=== PATIENT | female | born 1980 | race Caucasian/White ===

== ENCOUNTER 2021-11-27 23:49 | Emergency (ER) | payer MEDICAID, SELFPAY ==
--- NOTE | 2021-11-28 00:03 | PC.NURSE ---
Pt brought back to room, placed in room 9. Pt placed in gown, clothes and belonging placed in pt belonging bag. 1-to-1 observation began, staff at bedside within reach.
[2021-11-28 00:08] VITALS: BP 124/80; PULSE 119; RESP 18; TEMP 36.7; O2SAT 96; BMI 37.8
[2021-11-28 00:08] LABS: Microscopic, Urine URINE MICROSCOPIC (MICROSCOPIC)
--- NOTE | 2021-11-28 00:14 | ECG_ITS ---
APPROVED REPORT Exam: Resting ECG HR:109 bpm ECG Measurements Heart Rate 109 AXES AK 184 P 46 QRSd 112 QRS 60 QT 343 T 32 QTc 407 Conclusion SINUS TACHYCARDIA MODERATE INTRAVENTRICULAR CONDUCTION DELAY [110+ ms QRS DURATION] ABNORMAL RHYTHM ECG UNCONFIRMED REPORT Electronically signed by : Raad Schafer MD 11/29/2021 16:25:36
[2021-11-28 00:16] LABS: Appearance,Urine CLEAR (Clear); Bilirubin,Urine Negative (Negative); Blood, Urine Negative (Negative); Color,Urine YELLOW (Yellow); Glucose,Urine (UA) 1+ (Negative); Ketones,Urine Negative (Negative); Leukocyte Esterase,Urine Negative (Negative); Nitrate,Urine Negative (Negative); Protein,Urine Negative (Negative); Urobilinogen,Urine 0.2 EU/dl (0.2)
[2021-11-28 00:18] LABS: Amorphous Sediment,Urine Trace /lpf; Urine Pregnancy, HCG Qual. Negative (Negative)
--- NOTE | 2021-11-28 00:20 | XR_ITS ---
PROCEDURE INFORMATION: Exam: XR Chest Exam date and time: 11/28/2021 12:55 AM Age: 41 years old Clinical indication: Shortness of breath; Sternal or substernal pain; Additional info: SOA chest pain TECHNIQUE: Imaging protocol: Radiologic exam of the chest. Views: 2 views. Total images: 6 COMPARISON: No relevant prior studies available. FINDINGS: Lungs: Subtle patchy pulmonary parenchymal opacities most notable in the left mid and bilateral lower lungs, possibly findings of atypical pneumonia. COVID-19 is a consideration. Pleural spaces: Unremarkable. No pleural effusion. No pneumothorax. Heart/Mediastinum: Unremarkable. No cardiomegaly. Bones/joints: Left sided acromioclavicular joint degeneration. IMPRESSION: Subtle patchy pulmonary parenchymal opacities most notable in the left mid and bilateral lower lungs, possibly findings of atypical pneumonia. COVID-19 is a consideration. Radiographic surveillance is recommended to document resolution.
[2021-11-28 00:21] LABS: Coronavirus 19, PCR Not Detected (NotDetected); Influenza A, PCR Not Detected (NotDetected); Influenza B, PCR Not Detected (NotDetected)
[2021-11-28 00:26] LABS: Barbiturates Screen,Urine Negative ng/ml (<200)
[2021-11-28 00:27] LABS: Benzodiazepines Screen,Urine Negative ng/ml (<200)
[2021-11-28 00:28] LABS: Amphetamine/Metha Screen,Urine Negative ng/ml (<1000); Methadone Screen,Urine Negative ng/ml (<300)
[2021-11-28 00:29] LABS: Cannabinoid Screen,Urine Negative ng/ml (<50); Cocaine Screen,Urine Negative ng/ml (<300)
[2021-11-28 00:30] LABS: Opiate Screen,Urine Negative ng/ml (<300)
[2021-11-28 00:31] LABS: Phencyclidine Screen,Urine Negative ng/ml (<25)
[2021-11-28 00:33] LABS: Basophils # 0.2 K/mm3 (0-0.2); Basophils % 1.3 % (0.1-2.0); Eosinophils # 0.1 K/mm3 (0.0-0.4); Eosinophils % 0.8 % (0.1-12.0); Hematocrit 40.7 % (37.0-47.0); Hemoglobin 13.1 g/dL (12.2-16.2); Lymphocytes # 3.4 K/mm3 (0.7-4.5); Lymphocytes % 28.2 % (10-50); Mean Corpuscular HGB Conc 32.2 g/dL (31.8-35.4); Mean Corpuscular Hemoglobin 27.6 pg (27.0-31.2); Mean Corpuscular Volume 85.8 fl (81-99); Mean Platelet Volume 7.2 fl (7.4-10.4); Monocytes # 0.6 K/mm3 (0.1-1.0); Monocytes % 4.8 % (1.7-9.3); Neutrophils # 7.8 K/mm3 (1.8-7.8); Neutrophils % 64.9 % (37.0-80.0); Red Blood Count 4.75 M/mm3 (4.20-5.40); Red Cell Distribution Width 15.4 % (11.5-17.5)
[2021-11-28 00:36] LABS: Chloride 97 mmol/L (98-107); Potassium 3.7 mmoL/L (3.5-5.1); Sodium 135 mmol/L (136-145)
[2021-11-28 00:38] LABS: Blood Urea Nitrogen 4 mg/dl (7-17); Creatinine Clearance Estimated 216 mL/min (50-200); Estimated Glomerular Filt Rate 137 ml/min (>60); GFR (African American) 166 ML/MIN (>60)
[2021-11-28 00:39] LABS: Alanine Aminotransferase 39 U/L (12-78); Albumin/Globulin Ratio 1.7 (1.1-1.8); Alkaline Phosphatase 87 U/L (38-126); Anion Gap 20.7 mEq/L (5-15); Aspartate Amino Transferase 38 U/L (14-36); Bilirubin,Total 0.2 mg/dl (0.2-1.3); Calcium 10.1 mg/dl (8.4-10.2); Carbon Dioxide 21 mmol/L (22.0-30.0); Glucose 332 mg/dl (74-100)
[2021-11-28 00:40] LABS: Acetaminophen < 10 ug/ml (10-30); Ethyl Alcohol < 10 mg/dl (0-10); Salicylate < 1.0 mg/dL (2.0-20.0)
[2021-11-28 00:43] LABS: Platelet Count 655 K/mm3 (142-424)
[2021-11-28 01:51] LABS: Acetone, Serum (Rapid) None Detected (None Detect)
[2021-11-28 02:08] VITALS: BP 133/75; PULSE 90; O2SAT 100
[2021-11-28 02:30] VITALS: BP 126/72; PULSE 91; O2SAT 99
--- NOTE | 2021-11-28 02:37 | [facility].EDPSYCH ---
ED Disposition Clinical Impression: Depression Qualifiers: Depression Type: major depressive disorder Major depression recurrence: single episode Active/Remission status: currently active Major depression episode severity: mild Qualified Code(s): F32.0 - Major depressive disorder, single episode, mild Diabetes mellitus Qualifiers: Diabetes mellitus type: type 2 Diabetes mellitus usp insulin use: unspecified usp insulin use status Diabetes mellitus complication status: with other specified complication Qualified Code(s): E11.69 - Type 2 diabetes mellitus with other specified complication Disposition: Home, Self-Care Condition on Discharge: Good Instructions: Depression Additional Instructions: see pcp for follow up Referrals: Provider,Referral, [Primary Care Provider] - - Critical Care Critical Care Time: No Attestation: On 11/27/21, the high probability of a clinically significant, sudden or life threatening deterioration of the following system(s) required my full and direct attention, intervention and personal management. The time I documented below is in addition to time spent performing reported procedures but includes the following listed in this critical care notation. Medical Decision Making - Medical Records Medical records reviewed: Yes: I reviewed the patient's medical records. - [place] Inquiry Pt receiving controlled substance: No Vital Signs: 11/28/21 00:08 11/28/21 02:08 11/28/21 02:30 Temperature 98.1 F Temperature Source Oral Pulse Rate 90 91 H Pulse Rate [Apical] 119 H Respiratory Rate 18 Blood Pressure 133/75 126/72 Blood Pressure [Right Arm] 124/80 Blood Pressure Mean 99 Blood Pressure Mean [Right Arm] 94 Blood Pressure Source [Right Arm] Automatic Cuff Blood Pressure Position [Right Arm] Sitting 02 Sat by Pulse Oximetry 96 100 99 Oxygen Delivery Method Room Air Room Air Room Air - Lab Data Lab results reviewed: Yes: I reviewed the patient's lab results. Lab Results 11/28/21 00:03: Urine Color Yellow, Urine Appearance Clear, Urine pH 6.0, Ur Specific Jordan 1.010, Urine Protein Negative, Urine Glucose (UA) 1+, Urine Ketones Negative, Urine Blood Negative, Urine Nitrate Negative, Urine Bilirubin Negative, Urine Urobilinogen 0.2, Ur Leukocyte Esterase Negative, Amorphous Sediment Trace 11/28/21 00:03: Urine HCG, Qual Negative 11/28/21 00:03: Urine Opiates Screen Negative, Urine Methadone Screen Negative, Ur Barbituates Screen Negative, Ur Phencyclidine Scrn Negative, Ur Amphetamines Screen Negative, U Benzodiazepines Scrn Negative, Urine Cocaine Screen Negative, U Marijuana (THC) Screen Negative 11/28/21 00:10: WBC 12.0 H, RBC 4.75, Hgb 13.1, Hct 40.7, MCV 85.8, MCH 27.6, MCHC 32.2, RDW 15.4, Plt Count 655 H, MPV 7.2 L, Neut % (Auto) 64.9, Lymph % (Auto) 28.2, Marion % (Auto) 4.8, Eos % (Auto) 0.8, Baso % (Auto) 1.3, Neut # (Auto) 7.8, Lymph # (Auto) 3.4, Marion # (Auto) 0.6, Eos # (Auto) 0.1, Baso # (Auto) 0.2 11/28/21 00:10: Sodium 135 L, Potassium 3.7, Chloride 97 L, Carbon Dioxide 21 L, Anion Gap 20.7 H, BUN 4 L, Creatinine 0.50 L, Estimated Creat Clear 216, Estimated GFR 137, Est GFR ( Amer) 166, Glucose 332 H, Calcium 10.1, Total Bilirubin 0.2, AST 38 H, ALT 39, Alkaline Phosphatase 87, Total Protein 8.0, Albumin 5.0, Globulin 3.0, Albumin/Globulin Ratio 1.7, Salicylates < 1.0 L, Acetaminophen < 10 L 11/28/21 00:10: Plasma/Serum Alcohol < 10 11/28/21 00:10: Acetone Level None detected 11/28/21 00:16: SARS-CoV-2 (PCR) Not detected, Influenza A Untype (PCR) Not detected, Influenza Type B (PCR) Not detected Result diagrams: 11/28/21 00:10 11/28/21 00:10 Orders (Tests/Meds): ED MEDICATIONS Generic Name Dose Route Start Last Admin Trade Name Freq PRN Reason Stop Dose Admin Sodium Chloride 1,000 mls @ 999 mls/hr 11/28/21 02:00 11/28/21 02:36 Sod Chlor 0.9% 1000ml Bag IV 11/28/21 03:00 999 mls/hr .Q1H1M VIKRAM Administration Discon
--- NOTE | 2021-11-28 03:26 | PC.NURSE ---
Pt refusing CTA -PE. States if I , I . Pt educated on r/f PE and abnormal CXR. Pt still refusing. notified.
--- NOTE | 2021-11-28 04:10 | PC.NURSE ---
at bedside with this RN. Pt refusing to sit up. She is clawing at MD & staff's hands & spit on MD. Police requested d/t combative pt. They states we will try to send someone out there .
--- NOTE | 2021-11-28 04:14 | PC.NURSE ---
at speaking to pt about POC
--- NOTE | 2021-11-28 04:18 | PC.NURSE ---
Pt now sitting up in wheelchair and speaking with MD & staff calmly. PD called and told to disregard the need for assistance at ED. Pt now let us know she is from [place] and walked here. States I don't like it there and didn't want them to know I was here . Pt denies any self harm intent at this time. states I just didn't want to be at that place . This RN called [facility] to inquire on bed status. Staff state the tech has charted she is here all night. Then, they checked her bed and found pt was not there. State they will be here shortly to collect pt. Staff assisted pt to get dressed, she walked to the BR with staff SBA and tolerated well.
[2021-11-28 04:45] VITALS: BP 135/75; PULSE 75; RESP 18; TEMP 37; O2SAT 98
== END 2021-11-28 04:50 | disposition home or self-care (01) ==
PROVIDERS: Emergency Provider Emergency Medicine
DX: F32.0 Major depressive disorder, single episode, mild (principal); E11.69 Type 2 diabetes mellitus with other specified complication; R45.851 Suicidal ideations; Z88.8 Allergy status to other drugs, medicaments and biological substances
CPT/HCPCS: 71046; 80053; 80305; 80329; 81001; 81025; 82009; 85025; 93005; 96365; 96375; 99284; C9803; U0003; U0005